=== PATIENT | female | born 1955 | race Caucasian/White ===

== ENCOUNTER 2020-04-11 12:45 | Emergency (ER) | payer MEDICAID ==
[~2020-04-11] VITALS: Ht 165.1 cm; Wt 81.8 kg
[~2020-04-11 12:45] MED LIST: DULO-31 PO; ESTR0.6261 PO; TOP100T PO; TRAZ-91 PO
[2020-04-11 12:48] VITALS: BP 119/73
== END 2020-04-11 15:08 | disposition home or self-care (01) ==
LOC: ER 12:45
DX: M54.9 Dorsalgia, unspecified (principal); G89.29 Other chronic pain; M51.36 Other intervertebral disc degeneration, lumbar region; F31.9 Bipolar disorder, unspecified; Z88.0 Allergy status to penicillin; Z88.8 Allergy status to other drugs, medicaments and biological substances; Z79.899 Other long term (current) drug therapy
CPT/HCPCS: 72100; 99283